=== PATIENT | male | born 1935 | race Two or more races ===

== ENCOUNTER 2023-03-27 10:28 | Emergency (ER) | payer MEDICARE, MEDICAID ==
[~2023-03-27] VITALS: Ht 157.5 cm; Wt 68.2 kg
[2023-03-27 11:18] VITALS: BP 155/85
== END 2023-03-27 12:13 | disposition home or self-care (01) ==
LOC: EMS 10:28
DX: F03.90 Unspecified dementia, unspecified severity, without behavioral disturbance, psychotic disturbance, mood disturbance, and anxiety (principal)
CPT/HCPCS: 99285; Z7502